=== PATIENT | female | born 1985 | race African-American/Black ===

== ENCOUNTER 2016-07-27 14:54 | Emergency (ER) | payer MEDICAID ==
[~2016-07-27] VITALS: Ht 167.6 cm; Wt 147.0 kg
[2016-07-27 15:20] VITALS: BP 138/68
== END 2016-07-27 15:50 | disposition home or self-care (01) ==
LOC: ER 14:58
DX: J02.9 Acute pharyngitis, unspecified (principal); M79.671 Pain in right foot

== ENCOUNTER 2016-08-26 08:43 | Emergency (ER) | payer MEDICAID ==
[~2016-08-26] VITALS: Ht 167.6 cm; Wt 147.0 kg
[2016-08-26 09:37] VITALS: BP 126/75
== END 2016-08-26 10:10 | disposition home or self-care (01) ==
LOC: ER 08:43
DX: M79.645 Pain in left finger(s) (principal); M79.644 Pain in right finger(s)

== ENCOUNTER 2016-10-20 11:59 | Emergency (ER) | payer MEDICAID ==
[~2016-10-20] VITALS: Ht 167.6 cm; Wt 147.4 kg
[2016-10-20 15:30] VITALS: BP 160/91
[2016-10-20] MEDS ORDERED: KETOROLAC TROMETH 60MG/2ML VIAL IM ONE (15:30)
== END 2016-10-20 15:49 | disposition home or self-care (01) ==
LOC: ER 11:59
DX: M79.642 Pain in left hand (principal); E66.9 Obesity, unspecified; Z68.43 Body mass index [BMI] 50.0-59.9, adult; M79.89 Other specified soft tissue disorders; Z90.49 Acquired absence of other specified parts of digestive tract
CPT/HCPCS: 73130; 96372; 99284; J1885